=== PATIENT | male | born 1970 | race Two or more races ===

== ENCOUNTER → 2021-02-20 08:00 | Outpatient (CLI) | payer OTHER | END | disposition home or self-care (01) | LOC: PPH VACUNA 08:00 | DX: Z23 Encounter for immunization (principal) ==

== ENCOUNTER 2021-11-07 10:40 | Outpatient (CLI) | payer OTHER | END 2021-11-07 11:00 | disposition home or self-care (01) | LOC: PPH VACUNA 10:40 | PROVIDERS: ATTEND Emergency Medicine Pediatric Emergency Medicine | DX: Z23 Encounter for immunization (principal) ==

== ENCOUNTER 2022-05-07 16:48 | Outpatient (CLI) | payer OTHER | END 2022-05-07 16:51 | disposition home or self-care (01) | LOC: RAD 16:48 | PROVIDERS: ATTEND Legal Medicine | DX: I10 Essential (primary) hypertension (principal) ==

== ENCOUNTER → 2022-05-08 08:49 | Outpatient (CLI) | payer OTHER | END | disposition home or self-care (01) | LOC: LAB 08:49 | PROVIDERS: ATTEND Legal Medicine | DX: I10 Essential (primary) hypertension (principal); R73.9 Hyperglycemia, unspecified; Z12.11 Encounter for screening for malignant neoplasm of colon; Z12.5 Encounter for screening for malignant neoplasm of prostate ==

== ENCOUNTER 2024-10-07 11:02 | Outpatient (CLI) | payer OTHER | END 2024-10-07 11:14 | disposition home or self-care (01) | LOC: RAD 11:02 | PROVIDERS: ATTEND Legal Medicine | DX: I10 Essential (primary) hypertension (principal) ==